=== PATIENT | female | born 1965 | race Caucasian/White ===

== ENCOUNTER 2023-05-20 15:59 | Outpatient (RCR) | payer BC, SELFPAY | END 2023-05-20 23:59 | disposition home or self-care (01) | LOC: RPT 15:59 | PROVIDERS: ATTENDING PHYSICIAN Orthopaedic Surgery Hand Surgery; FAMILY PHYSICIAN Physician Assistant Medical | DX: M25.512 Pain in left shoulder (principal); Z73.6 Limitation of activities due to disability; M62.81 Muscle weakness (generalized) | CPT/HCPCS: 97110; 97162 ==

== ENCOUNTER 2023-06-17 17:49 | Outpatient (RCR) | payer BC, SELFPAY | END 2023-06-17 23:59 | disposition home or self-care (01) | LOC: RPT 17:49 | PROVIDERS: ATTENDING PHYSICIAN Orthopaedic Surgery Hand Surgery; FAMILY PHYSICIAN Physician Assistant Medical | DX: M25.512 Pain in left shoulder (principal); Z73.6 Limitation of activities due to disability | CPT/HCPCS: 97010; 97110; 97140 ==

== ENCOUNTER 2023-07-08 18:00 | Outpatient (RCR) | payer BC, SELFPAY | END 2023-07-08 23:59 | disposition home or self-care (01) | LOC: RPT 18:00 | PROVIDERS: ATTENDING PHYSICIAN Orthopaedic Surgery Hand Surgery; FAMILY PHYSICIAN Physician Assistant Medical | DX: M25.512 Pain in left shoulder (principal); Z73.6 Limitation of activities due to disability; M62.81 Muscle weakness (generalized) | CPT/HCPCS: 97010; 97110 ==

== ENCOUNTER 2023-08-06 06:17 | Day surgery (SDC) | payer BC, SELFPAY ==
[2023-07-28 09:46] VITALS: BMI 24.2
[2023-08-06] VITALS (14 sets, daily range): BP systolic 105–126; BP diastolic 50–70; BMI 24.2
[2023-08-06] MEDS: NORMOSOL-R 1000 IV (07:42)
[2023-08-06] MEDS: TYLENOL 1000 MG PO (07:43)
[2023-08-06] MEDS: DILAUDID 0.25 MG IV (10:28)
== END 2023-08-06 12:20 | disposition home or self-care (01) ==
LOC: SDS 06:17
PROVIDERS: ATTENDING PHYSICIAN Orthopaedic Surgery Hand Surgery; FAMILY PHYSICIAN Physician Assistant Medical
DX: M75.02 Adhesive capsulitis of left shoulder (principal); M75.42 Impingement syndrome of left shoulder
CPT/HCPCS: 29822; 29826; 36415; 93005

== ENCOUNTER 2023-08-19 17:52 | Outpatient (RCR) | payer BC, SELFPAY | END 2023-08-19 23:59 | disposition home or self-care (01) | LOC: RPT 17:52 | PROVIDERS: ATTENDING PHYSICIAN Orthopaedic Surgery Hand Surgery; FAMILY PHYSICIAN Physician Assistant Medical | DX: Z47.89 Encounter for other orthopedic aftercare (principal); Z73.6 Limitation of activities due to disability; M25.512 Pain in left shoulder | CPT/HCPCS: 97010; 97110; 97116; 97140; 97161 ==

== ENCOUNTER 2023-09-17 19:03 | Outpatient (RCR) | payer BC, SELFPAY | END 2023-09-17 23:59 | disposition home or self-care (01) | LOC: RPT 19:03 | PROVIDERS: ATTENDING PHYSICIAN Orthopaedic Surgery Hand Surgery; FAMILY PHYSICIAN Physician Assistant Medical | DX: Z47.89 Encounter for other orthopedic aftercare (principal); Z73.6 Limitation of activities due to disability; M25.612 Stiffness of left shoulder, not elsewhere classified; M25.512 Pain in left shoulder | CPT/HCPCS: 97010; 97110; 97140 ==

== ENCOUNTER 2023-10-09 17:57 | Outpatient (RCR) | payer BC, SELFPAY | END 2023-10-09 23:59 | disposition home or self-care (01) | LOC: RPT 17:57 | PROVIDERS: ATTENDING PHYSICIAN Orthopaedic Surgery Hand Surgery; FAMILY PHYSICIAN Physician Assistant Medical | DX: Z47.89 Encounter for other orthopedic aftercare (principal); Z73.6 Limitation of activities due to disability | CPT/HCPCS: 97110 ==

== ENCOUNTER → 2024-11-26 10:04 | Outpatient (REF) | payer BC, SELFPAY | LOC: WDC 10:04 | PROVIDERS: ATTENDING PHYSICIAN Obstetrics & Gynecology; FAMILY PHYSICIAN Physician Assistant Medical | DX: R92.8 Other abnormal and inconclusive findings on diagnostic imaging of breast (principal) | CPT/HCPCS: 76642; 77062; 77066 ==